=== PATIENT | male | born 1985 | race African-American/Black ===

== ENCOUNTER → 2016-03-18 | Outpatient (CLI) | payer BC | END | disposition home or self-care (01) | LOC: LAB 13:14 | DX: J11.1 Influenza due to unidentified influenza virus with other respiratory manifestations (principal) ==

== ENCOUNTER → 2016-11-13 | Outpatient (CLI) | payer OTHER ==
[2016-11-13 15:14] LABS: CHOLESTEROL 246 mg/dL (<200); HDL CHOLESTEROL 74 mg/dl (40-60); LDL CHOLESTEROL 163 mg/dL (9-159); TRIGLYCERIDES 47 mg/dl (<150); VLDL CHOLESTEROL 9 mg/dL (6-40)
== END | disposition home or self-care (01) ==
LOC: LAB 14:04
PROVIDERS: Family Medicine
DX: E78.00 Pure hypercholesterolemia, unspecified (principal); E55.9 Vitamin D deficiency, unspecified; J30.1 Allergic rhinitis due to pollen; R73.03 Prediabetes